=== PATIENT | male | born 1955 | race Two or more races ===

== ENCOUNTER 2022-05-25 05:50 | Day surgery (SDC) | payer OTHER ==
[~2022-05-25] VITALS: Ht 165.1 cm; Wt 59.9 kg
[~2022-05-25 05:50] MED LIST: OXTELLAR XR150 MG
[2022-05-25] MEDS ORDERED: PERCOCET 5-3251 EACH PO (14:59)
== END 2022-05-25 18:00 | disposition home or self-care (01) ==
LOC: CIR.AMB 05:50
PROVIDERS: ATTEND Surgery
DX: K64.8 Other hemorrhoids (principal); Z20.822 Contact with and (suspected) exposure to COVID-19; E78.5 Hyperlipidemia, unspecified

== ENCOUNTER 2022-05-29 11:36 | Emergency (ER) | payer OTHER ==
[~2022-05-29] VITALS: Ht 165.1 cm; Wt 59.9 kg
[~2022-05-29 11:36] MED LIST changes: +PERCOCET 5-3251 EACH PO
== END 2022-05-29 17:52 | disposition home or self-care (01) ==
LOC: ER 11:36
DX: K64.9 Unspecified hemorrhoids (principal); Z98.890 Other specified postprocedural states; K59.00 Constipation, unspecified; K62.5 Hemorrhage of anus and rectum